=== PATIENT | female | born 1970 | race Two or more races ===

== ENCOUNTER 2025-02-10 07:36 | Outpatient (CLI) | payer OTHER | END 2025-02-10 07:42 | disposition home or self-care (01) | LOC: MAMO-SONO 07:36 | PROVIDERS: ATTEND Obstetrics & Gynecology Obstetrics | DX: R10.2 Pelvic and perineal pain (principal); N64.4 Mastodynia; N63.11 Unspecified lump in the right breast, upper outer quadrant; N63.12 Unspecified lump in the right breast, upper inner quadrant; Z12.31 Encounter for screening mammogram for malignant neoplasm of breast ==

== ENCOUNTER 2025-06-05 08:17 | Outpatient (CLI) | payer OTHER | END 2025-06-05 08:19 | disposition home or self-care (01) | LOC: NUCLEAR 08:17 | PROVIDERS: ATTEND Internal Medicine | DX: I36.1 Nonrheumatic tricuspid (valve) insufficiency (principal); I65.8 Occlusion and stenosis of other precerebral arteries ==

== ENCOUNTER 2025-06-05 09:44 | Outpatient (CLI) | payer OTHER ==
[2025-06-05 11:13] LABS: CHOL HDL RATIO 2.8 (0-5.0); HDL 78.0 mg/dl (40-60); LDL 112.0 mg/dl (0-130); VLDL 29.0 (0-39)
== END 2025-06-05 09:45 | disposition home or self-care (01) ==
LOC: LAB 09:44
PROVIDERS: ATTEND Internal Medicine
DX: E78.2 Mixed hyperlipidemia (principal)